=== PATIENT | female | born 1965 | race Caucasian/White ===

== ENCOUNTER → 2021-07-12 | Outpatient (CLI) | payer OTHER ==
[~2021-07-12] MED LIST: ALENDRONATE SOD70 MG PO; ALORA1 EAC1 TD; CLARITIN10 MG PO; CLEOCIN HCL300 MG PO; COL-RITE250 MG PO; ELAVIL 50 MG TA50 MG PO; FLAGYL500 MG PO; GABAPENTIN600 MG PO; LEVAQUIN500 MG PO; MOBIC7.5 MG PO; PERCOCET 5/325 T1 EA PO; PROGESTERONE200 MG PO; PROTONIX40 MG PO; ROBAXIN-750750 MG PO; ULTRAM50 MG PO; ZANTAC150 MG PO
== END ==
LOC: KOH-I 13:44
DX: F17.210 Nicotine dependence, cigarettes, uncomplicated (principal); R91.8 Other nonspecific abnormal finding of lung field
CPT/HCPCS: 71271